=== PATIENT | female | born 1975 | race Caucasian/White ===

== ENCOUNTER 2019-12-14 11:18 | Inpatient (IN) | payer MEDICAID ==
[2019-12-14] VITALS (27 sets, daily range): BP systolic 83–119; BP diastolic 45–66
[~2019-12-14] VITALS: Ht 170.2 cm; Wt 49.9 kg
[2019-12-14] MEDS ORDERED: KETOROLAC 30MG/ML VIAL IV STA (12:13)
[2019-12-14] MEDS ORDERED: SODIUM CHLORIDE 0.9% 1,000 ML IV ONE ×3 (12:13→14:58)
[2019-12-14 12:43] LABS: BASOPHILS % 0.3 % (0.0-2.0); EOSINOPHILS % 0.8 % (0.0-5.0); HEMATOCRIT. 27.2 % (36.0-48.0); HEMOGLOBIN. 8.2 g/dL (12.0-16.0); LYMPHOCYTES % 16.9 % (20.0-50.0); MEAN CORPUSCULAR HEMOGLOBIN 22.1 pg (28.0-32.0); MEAN CORPUSCULAR VOLUME 73.3 fL (81.0-99.0); MEAN PLATELET VOLUME 6.2 fl (7.4-10.4); MONOCYTES % 6.8 % (2.0-8.0); NEUTROPHILS % 75.2 % (40.0-76.0); PLATELET 304 x1000/uL (130-400); RED BLOOD CELL COUNT 3.72 mill/uL (4.2-5.4); RED CELL DISTRIBUTION WIDTH 22.4 % (11.6-14.6)
[2019-12-14 12:52] LABS: CHLORIDE 113 mEq/L (98-107)
[2019-12-14 12:57] LABS: ETHANOL BLOOD < 10 mg/dL
[2019-12-14 13:06] LABS: HCG SCREEN NEGATIVE
[2019-12-14] MEDS ORDERED: LEVETIRACETAM 500MG PREMIX 100 ML IV ONE (13:30)
[2019-12-14 13:34] LABS: PLATELET ESTIMATE NORMAL
[2019-12-14] MEDS ORDERED: MORPHINE SULFATE 2 MG/ML CPJ (NOT FOR IM USE) IV PRN (18:00)
[2019-12-14] MEDS ORDERED: GABA-290 PO (19:51)
[2019-12-14] MEDS ORDERED: CLON1TAB12 PO (19:51)
[2019-12-14] MEDS ORDERED: CLONAZEPAM 1MG TABLET PO PRN (20:15)
[2019-12-14] MEDS ORDERED: POTASSIUM CHLORIDE 20MEQ TABLET SR PO NR (20:15)
[2019-12-14] MEDS: GABAPENTIN 300MG CAPSULE PO SCH (21:08)
[2019-12-14] MEDS: LEVETIRACETAM 250 MG in SODIUM CHLORIDE 0.9% 100 ML IV SCH (21:09)
[2019-12-14] MEDS ORDERED: PRED-276 PO (21:35)
[2019-12-14] MEDS ORDERED: ABIL10 PO (21:35)
[2019-12-14] MEDS ORDERED: PARO-66 MT (21:35)
[2019-12-14] MEDS ORDERED: TRAZ-252 PO (21:35)
[2019-12-14] MEDS ORDERED: ARIPIPRAZOLE 10 MG PO SCH (21:45)
[2019-12-14] MEDS: PREDNISONE 20MG TABLET PO SCH (22:38)
[2019-12-14] MEDS: PAROXETINE HCL 10MG TABLET PO SCH (22:38)
[2019-12-14] MEDS: TRAZODONE HCL 50MG TABLET PO SCH (22:38)
[2019-12-14] MEDS: MORPHINE SULFATE 2 MG/ML CPJ (NOT FOR IM USE) IV PRN (22:39)
[2019-12-15] VITALS (68 sets, daily range): BP systolic 91–139; BP diastolic 48–86
[2019-12-15] MEDS: MORPHINE SULFATE 2 MG/ML CPJ (NOT FOR IM USE) IV PRN ×4 (03:07→21:58)
[2019-12-15] MEDS: LEVETIRACETAM 250 MG in SODIUM CHLORIDE 0.9% 100 ML IV SCH ×2 (08:24→21:43)
[2019-12-15] MEDS: GABAPENTIN 300MG CAPSULE PO SCH ×3 (08:25→17:16)
[2019-12-15] MEDS: ARIPIPRAZOLE 5MG TABLET PO SCH (08:25)
[2019-12-15 09:41] LABS: EOSINOPHILS % 0.1 % (0.0-5.0); HEMOGLOBIN. 8.8 g/dL (12.0-16.0); MEAN PLATELET VOLUME 6.2 fl (7.4-10.4)
[2019-12-15 09:43] LABS: BASOPHILS % 0.1 % (0.0-2.0); HEMATOCRIT. 28.6 % (36.0-48.0); LYMPHOCYTES % 9.3 % (20.0-50.0); MEAN CORPUSCULAR VOLUME 71.8 fL (81.0-99.0); MONOCYTES % 2.8 % (2.0-8.0); NEUTROPHILS % 87.7 % (40.0-76.0); PLATELET 360 x1000/uL (130-400); RED BLOOD CELL COUNT 3.98 mill/uL (4.2-5.4); RED CELL DISTRIBUTION WIDTH 21.9 % (11.6-14.6)
[2019-12-15 09:57] LABS: CHLORIDE 107 mEq/L (98-107)
[2019-12-15] MEDS ORDERED: ONDANSETRON HCL 4MG/2ML INJ IV PRN (11:00)
[2019-12-15] MEDS: HYDROCODONE/ACETAMINOPHEN 5/325MG TABLET PO PRN (12:32)
[2019-12-15 16:11] LABS: TOTAL IRON BINDING CAPACITY 348 ug/dL (250-450)
[2019-12-15 20:33] LABS: CLARITY URINE CLEAR (CLEAR); COLOR URINE YELLOW (YELLOW); KETONES URINE NEGATIVE (NEGATIVE); LEUKOCYTE ESTERASE URINE NEGATIVE (NEGATIVE); NITRITE URINE NEGATIVE (NEGATIVE); OCCULT BLOOD URINE NEGATIVE (NEGATIVE); PROTEIN URINE NEGATIVE (NEGATIVE); SPECIFIC GRAVITY URINE 1.015 (1.005-1.030); UROBILINOGEN URINE 0.2 E.U./dL (0.2-1.0)
[2019-12-15 20:55] LABS: *AMPHETAMINES SCREEN URINE NEGATIVE (NEGATIVE); *BARBITURATES SCREEN URINE NEGATIVE (NEGATIVE); *BENZODIAZEPINES SCREEN URINE NEGATIVE (NEGATIVE); *COCAINE SCREEN URINE NEGATIVE (NEGATIVE); METHADONE URINE SCREEN NEGATIVE (NEGATIVE)
[2019-12-15 20:56] LABS: CANNABINOID URINE SCREEN NEGATIVE (NEGATIVE); PHENCYCLIDINE URINE SCREEN NEGATIVE (NEGATIVE)
[2019-12-15 21:00] LABS: OPIATES URINE SCREEN PRESUMTIVE POSITIVE (NEGATIVE)
[2019-12-15] MEDS ORDERED: MEDICATION NOT ON FORMULARY EA (Trazodone Hcl 200 MG) PO SCH (21:00)
[2019-12-15] MEDS ORDERED: PREDNISOLONE PO SCH (21:00)
[2019-12-15] MEDS ORDERED: PAROXETINE HCL MT SCH (21:00)
[2019-12-15] MEDS: PAROXETINE HCL 10MG TABLET PO SCH (21:43)
[2019-12-15] MEDS: TRAZODONE HCL 50MG TABLET PO SCH (21:44)
[2019-12-15] MEDS: PREDNISONE 20MG TABLET PO SCH (21:44)
[2019-12-16] VITALS (32 sets, daily range): BP systolic 86–129; BP diastolic 45–72
[2019-12-16] MEDS: MORPHINE SULFATE 2 MG/ML CPJ (NOT FOR IM USE) IV PRN ×4 (04:10→20:17)
[2019-12-16 05:41] LABS: BASOPHILS % 0.2 % (0.0-2.0); EOSINOPHILS % 0.1 % (0.0-5.0); HEMOGLOBIN. 9.4 g/dL (12.0-16.0); LYMPHOCYTES % 10.2 % (20.0-50.0); MEAN CORPUSCULAR HEMOGLOBIN 21.8 pg (28.0-32.0); MEAN CORPUSCULAR VOLUME 72.1 fL (81.0-99.0); MEAN PLATELET VOLUME 6.3 fl (7.4-10.4); MONOCYTES % 2.4 % (2.0-8.0); NEUTROPHILS % 87.1 % (40.0-76.0); PLATELET 375 x1000/uL (130-400); RED CELL DISTRIBUTION WIDTH 21.7 % (11.6-14.6)
[2019-12-16 05:46] LABS: CHLORIDE 104 mEq/L (98-107)
[2019-12-16] MEDS: HYDROCODONE/ACETAMINOPHEN 5/325MG TABLET PO PRN ×3 (06:12→17:37)
[2019-12-16] MEDS: LEVETIRACETAM 250 MG in SODIUM CHLORIDE 0.9% 100 ML IV SCH ×2 (09:08→22:20)
[2019-12-16] MEDS: GABAPENTIN 300MG CAPSULE PO SCH ×3 (09:09→17:36)
[2019-12-16] MEDS: ARIPIPRAZOLE 5MG TABLET PO SCH (09:09)
[2019-12-16] MEDS: DOCUSATE SODIUM 250MG CAPSULE PO SCH (10:55)
[2019-12-16] MEDS ORDERED: GADOBENATE DIMEGLUMINE 529 MG/ML 10ML IV ONE (11:10)
[2019-12-16] MEDS: FERROUS SULFATE 325MG TABLET PO SCH ×2 (12:35→17:36)
[2019-12-16] MEDS: PREDNISONE 20MG TABLET PO SCH (22:19)
[2019-12-16] MEDS: PAROXETINE HCL 10MG TABLET PO SCH (22:19)
[2019-12-16] MEDS: TRAZODONE HCL 50MG TABLET PO SCH (22:19)
[2019-12-17 00:45] VITALS: BP 99/61
[2019-12-17] MEDS: MORPHINE SULFATE 2 MG/ML CPJ (NOT FOR IM USE) IV PRN ×2 (01:26→07:05)
[2019-12-17 04:00] VITALS: BP 105/66
[2019-12-17] MEDS: HYDROCODONE/ACETAMINOPHEN 5/325MG TABLET PO PRN ×3 (04:18→15:19)
[2019-12-17 07:35] LABS: BASOPHILS % 0.4 % (0.0-2.0); EOSINOPHILS % 0.2 % (0.0-5.0); HEMATOCRIT. 31.9 % (36.0-48.0); HEMOGLOBIN. 9.9 g/dL (12.0-16.0); LYMPHOCYTES % 12.7 % (20.0-50.0); MEAN CORPUSCULAR HEMOGLOBIN 22.3 pg (28.0-32.0); MEAN CORPUSCULAR VOLUME 72.1 fL (81.0-99.0); MEAN PLATELET VOLUME 6.5 fl (7.4-10.4); MONOCYTES % 3.3 % (2.0-8.0); NEUTROPHILS % 83.4 % (40.0-76.0); PLATELET 357 x1000/uL (130-400); RED BLOOD CELL COUNT 4.42 mill/uL (4.2-5.4); RED CELL DISTRIBUTION WIDTH 21.5 % (11.6-14.6)
[2019-12-17 08:00] VITALS: BP 86/53
[2019-12-17 08:29] LABS: CHLORIDE 103 mEq/L (98-107)
[2019-12-17] MEDS: DOCUSATE SODIUM 250MG CAPSULE PO SCH (08:48)
[2019-12-17] MEDS: FERROUS SULFATE 325MG TABLET PO SCH ×2 (08:48→13:34)
[2019-12-17] MEDS: GABAPENTIN 300MG CAPSULE PO SCH ×2 (08:48→13:34)
[2019-12-17] MEDS: ARIPIPRAZOLE 5MG TABLET PO SCH (10:47)
[2019-12-17] MEDS ORDERED: FERR325T23 PO (11:58)
[2019-12-17] MEDS ORDERED: KEPP500 MT (11:58)
[2019-12-17] MEDS ORDERED: DOCU250C14 PO (11:58)
[2019-12-17 12:40] VITALS: BP 99/61
[2019-12-17 13:10] VITALS: BP 109/62
[2019-12-17] MEDS ORDERED: HYDR-4009 MT (13:43)
[2019-12-17 15:19] VITALS: BP 113/70
== END 2019-12-17 16:07 | disposition home or self-care (01) | DRG 44 ==
LOC: ER 11:40 → MICUNO 14:13 → EDBEDREQ 14:17 → EDBEDREQTM 14:17 → ENRESERV 14:47 → 6EST 12-16 15:43
PROVIDERS: ADMIT Internal Medicine; ATTEND Internal Medicine
DX: I62.02 Nontraumatic subacute subdural hemorrhage (principal); E43 Unspecified severe protein-calorie malnutrition; E87.8 Other disorders of electrolyte and fluid balance, not elsewhere classified; E87.6 Hypokalemia; D64.9 Anemia, unspecified; G90.8 Other disorders of autonomic nervous system; F17.210 Nicotine dependence, cigarettes, uncomplicated; F20.0 Paranoid schizophrenia; K51.90 Ulcerative colitis, unspecified, without complications; Z68.1 Body mass index [BMI] 19.9 or less, adult; Z79.899 Other long term (current) drug therapy
CPT/HCPCS: 36415; 70553; 71045; 73560; 80048; 80053; 80061; 80305; 80320; 81003; 82728; 83036; 83540; 83550; 83880; 84443; 84484; 84703; 85025; 93005; 93306; 97116; 97162; 97166; 99291; A9577; J1885; J1953; J2270; J7030; J7050; J7512; G0480

== ENCOUNTER 2020-01-09 18:06 | Emergency (ER) | payer MEDICAID ==
[~2020-01-09] VITALS: Ht 170.2 cm; Wt 52.0 kg
[~2020-01-09 18:06] MED LIST: ABIL10 PO; CLON1TAB12 PO; DOCU250C14 PO; FERR325T23 PO; GABA-290 PO; HYDR-4009 MT; KEPP500 MT; PARO-66 MT; PRED-276 PO; TRAZ-252 PO
[2020-01-09] MEDS ORDERED: PROCHLORPERAZINE 10MG/2ML VIAL IV ONE (18:45)
[2020-01-09] MEDS ORDERED: SODIUM CHLORIDE 0.9% 1,000 ML IV ONE (18:45)
[2020-01-09] MEDS ORDERED: DIPHENHYDRAMINE 50MG/ML VIAL IV ONE (18:45)
[2020-01-09 19:25] LABS: BASOPHILS % 0.7 % (0.0-2.0); EOSINOPHILS % 1.5 % (0.0-5.0); HEMOGLOBIN. 9.1 g/dL (12.0-16.0); LYMPHOCYTES % 10.7 % (20.0-50.0); MEAN CORPUSCULAR HEMOGLOBIN 22.1 pg (28.0-32.0); MEAN CORPUSCULAR VOLUME 72.6 fL (81.0-99.0); MEAN PLATELET VOLUME 6.2 fl (7.4-10.4); MONOCYTES % 3.6 % (2.0-8.0); NEUTROPHILS % 83.5 % (40.0-76.0); PLATELET 384 x1000/uL (130-400); RED BLOOD CELL COUNT 4.13 mill/uL (4.2-5.4); RED CELL DISTRIBUTION WIDTH 19.8 % (11.6-14.6)
[2020-01-09 19:31] LABS: CHLORIDE 104 mEq/L (98-107)
[2020-01-09] MEDS ORDERED: POTASSIUM CHLORIDE 20MEQ TABLET SR PO ONE (20:30)
[2020-01-09 20:32] LABS: CLARITY URINE CLEAR (CLEAR); COLOR URINE YELLOW (YELLOW); KETONES URINE NEGATIVE (NEGATIVE); LEUKOCYTE ESTERASE URINE NEGATIVE (NEGATIVE); NITRITE URINE NEGATIVE (NEGATIVE); OCCULT BLOOD URINE NEGATIVE (NEGATIVE); PROTEIN URINE NEGATIVE (NEGATIVE); SPECIFIC GRAVITY URINE 1.008 (1.005-1.030); UROBILINOGEN URINE 0.2 E.U./dL (0.2-1.0)
[2020-01-09 21:51] VITALS: BP 97/63
== END 2020-01-09 21:45 | disposition home or self-care (01) ==
LOC: ER 18:06
DX: G43.909 Migraine, unspecified, not intractable, without status migrainosus (principal); G93.6 Cerebral edema; I10 Essential (primary) hypertension; K50.90 Crohn's disease, unspecified, without complications; F99 Mental disorder, not otherwise specified; Z85.038 Personal history of other malignant neoplasm of large intestine; Z91.040 Latex allergy status; Z98.890 Other specified postprocedural states
CPT/HCPCS: 36415; 70450; 80048; 81003; 85025; 93005; 96361; 96374; 96375; 99285; J0780; J1200; J7030

== ENCOUNTER 2020-01-18 13:16 | Emergency (ER) | payer MEDICAID ==
[~2020-01-18] VITALS: Ht 162.6 cm; Wt 55.0 kg
[2020-01-18] MEDS ORDERED: DIPHENHYDRAMINE 50MG/ML VIAL IM ONE (16:15)
[2020-01-18] MEDS ORDERED: KETOROLAC 30MG/ML VIAL IM ONE (16:15)
[2020-01-18 17:12] VITALS: BP 103/78
== END 2020-01-18 17:12 | disposition home or self-care (01) ==
LOC: ER 13:16
DX: G43.909 Migraine, unspecified, not intractable, without status migrainosus (principal); F41.9 Anxiety disorder, unspecified; F31.9 Bipolar disorder, unspecified; K50.90 Crohn's disease, unspecified, without complications; Z91.040 Latex allergy status
CPT/HCPCS: 81025; 96372; 99284; J1200; J1885